=== PATIENT | male | born 1970 | race Caucasian/White ===

== ENCOUNTER 2025-03-07 10:44 | Emergency (ER) | payer OTHER | END 2025-03-07 12:55 | disposition home or self-care (01) | LOC: JP.ED 10:44 | DX: S61.411A Laceration without foreign body of right hand, initial encounter (principal); I48.91 Unspecified atrial fibrillation; Z79.899 Other long term (current) drug therapy; Z88.8 Allergy status to other drugs, medicaments and biological substances; W31.2XXA Contact with powered woodworking and forming machines, initial encounter | CPT/HCPCS: 12001; 99282; J0665 ==